=== PATIENT | male | born 1995 | race Caucasian/White ===

== ENCOUNTER 2017-06-20 17:34 | Emergency (ER) | payer OTHER ==
[~2017-06-20] VITALS: Ht 172.7 cm; Wt 59.0 kg
== END 2017-06-20 19:14 | disposition home or self-care (01) ==
LOC: ED 17:34
DX: S63.602A Unspecified sprain of left thumb, initial encounter (principal); V58.9XXA Unspecified occupant of pick-up truck or van injured in noncollision transport accident in traffic accident, initial encounter; Y93.89 Activity, other specified; Y92.89 Other specified places as the place of occurrence of the external cause; Y99.8 Other external cause status

== ENCOUNTER 2025-04-05 06:12 | Emergency (ER) | payer OTHER ==
[~2025-04-05] VITALS: Ht 170.1 cm; Wt 54.4 kg
[2025-04-05 06:55] LABS: BASO # 0.1 10*3/uL (0.0-0.1); BASO % 0.4 % (0.0-1.0); EOS # 0.1 10*3/uL (0.0-0.4); EOS % 0.8 % (1.0-4.0); MEAN CELL VOLUME 85.9 fl (80.0-94.0); MEAN CORPUSCULAR HGB 28.5 pg (27.0-31.0); MEAN PLATELET VOLUME 9.6 fl (9.6-12.3); MONO # 1.2 10*3/uL (0.1-1.0); MONO % 8.4 % (3.0-9.0); NEUT # 11.3 10*3/uL (2.3-7.9); NEUT % 78.0 % (47.0-73.0); NUCLEATED RED BLOOD CELL 0.0 % (0.0-0.0); NUCLEATED RED BLOOD CELL 0.0 10*3/uL (0.0-0.0); PLATELET COUNT AUTOMATED 207 10*3/uL (130-400); RED CELL DISTRI WIDTH 12.2 % (0-14.5)
[2025-04-05 07:15] LABS: BUN 9 mg/dl (9-23); SGPT/ALT 10 U/L (5-49)
[2025-04-05 07:43] LABS: BILIRUBIN Negative (Negative); BLOOD Negative (Negative); CLARITY Clear (Clear); COLOR Yellow (Yellow); KETONE Trace (Negative); LEUKO ESTERASE 1+ (Negative); NITRITE Negative (Negative); PH 6.0 (4.5-8.0); SPECIFIC GRAVITY 1.015 (1.001-1.030); UROBILINOGEN 1.0 E.U./dl (0.0-1.0)
[2025-04-05 08:05] LABS: BACTERIA TRACE; EPITHELIAL CELLS 0-2; MUCOUS 1+
[2025-04-05] MEDS ORDERED: NAPROSYN500 MG PO (08:25)
[2025-04-05] MEDS ORDERED: METHOCARBAMOL750 M1 PO (08:25)
[2025-04-05] MEDS ORDERED: PREDNISONE50 MG PO (08:25)
== END 2025-04-05 08:51 | disposition home or self-care (01) ==
LOC: ED 06:12
PROVIDERS: Internal Medicine
DX: R10.31 Right lower quadrant pain (principal); R10.32 Left lower quadrant pain; M51.27 Other intervertebral disc displacement, lumbosacral region; R09.89 Other specified symptoms and signs involving the circulatory and respiratory systems; Z20.822 Contact with and (suspected) exposure to COVID-19